=== PATIENT | female | born 1995 | race Caucasian/White ===

== ENCOUNTER 2018-03-20 07:42 | Outpatient (CLI) | payer OTHER ==
--- NOTE | 2018-03-20 10:20 | ULT ---
ULTRASOUND DOPPLER DUPLEX VENOUS RIGHT UPPER EXTREMITY: 03/20/2018 HISTORY: A 22-year-old female with acute embolism, thrombosis. Prior DVT in right subclavian, axillary, and basilic veins, in September 2017. COMPARISON: None available. TECHNIQUE: Young-scale, color-flow, and spectral analysis of the major veins of the right upper extremity. Compr ession and release applied to all veins except the subclavian. FINDINGS: The right internal jugular, subclavian, axillary, brachial, radial, ulnar, cephalic, and basilic vein s are patent and clear, with no thrombosis. IMPRESSION: Negative. No deep venous thrombosis in the right upper extremity. POS: [facility]
== END 2018-03-20 07:43 | disposition home or self-care (01) ==
LOC: ULT 07:42
PROVIDERS: ATTEND Internal Medicine Medical Oncology
DX: M79.601 Pain in right arm (principal); R60.0 Localized edema; I82.90 Acute embolism and thrombosis of unspecified vein; Z86.718 Personal history of other venous thrombosis and embolism